=== PATIENT | female | born 1990 | race Two or more races ===

== ENCOUNTER → 2024-09-20 | Outpatient (CLI) | payer MEDICAID, SELFPAY ==
--- NOTE | 2024-09-20 | XR_ITS ---
Examination: Wrist, right 3 views Technique: Wrist AP, oblique, lateral 3 views Date and time of exam: September 20, 2024 1247 hours Comparison August 01, 2024 INDICATIONS: Acute fracture radius August 01, 2024 postop reduction internal fixation fracture FINDINGS: Significant partial healing fractures distal radial metaphysis with stable and satisfactory alignment Orthopedic hardware satisfactory position IMPRESSION: Significant partial healing fractures distal radius with satisfactory and stable alignment
== END | disposition home or self-care (01) ==
PROVIDERS: Referring Provider Orthopaedic Surgery; Visit Provider Orthopaedic Surgery
DX: S52.91XA Unspecified fracture of right forearm, initial encounter for closed fracture (principal); X58.XXXA Exposure to other specified factors, initial encounter
CPT/HCPCS: 73110

== ENCOUNTER 2025-10-08 17:58 | Emergency (ER) | payer MEDICAID, SELFPAY ==
[2025-10-08 18:26] VITALS: BP 106/71; PULSE 76; RESP 18; TEMP 36.9; O2SAT 97; BMI 23.4
--- NOTE | 2025-10-08 18:28 | XR_ITS ---
Examination: Complete OB ultrasound, less than 14 weeks, transabdominal Date and time of exam: October 08, 2025, 1840 hours INDICATIONS: Nausea vomiting beginning 5 days ago Technique: Obstetrical ultrasound images less than 14 weeks performed via transabdominal imaging Findings: Uterus 8.6 cm Intrauterine gestational sac 1.3 cm corresponds to 6 weeks 1 day No pole, no cardiac activity Right ovary 3.6 cm arterial flow Left ovary 2.8 cm arterial flow IMPRESSION: Empty intrauterine gestational sac corresponding to 6 weeks 1 day gestational age Recommend short-term follow-up transvaginal pelvic sonography
[2025-10-08 18:57] LABS: Basophils # (Auto) 0.0 Thou/mm3 (0.0-0.2); Basophils % (Auto) 0 % (0-2.5); Eosinophils # (Auto) 0.1 Thou/mm3 (0.0-0.5); Eosinophils % (Auto) 1 % (0-10); Hematocrit 35.0 % (36.0-46.0); Hemoglobin 11.4 g/dL (12.0-16.0); Immature Granulocytes Auto 0.02 Thou/mm3 (0.00-0.00); Lymphocytes # (Auto) 1.3 Thou/mm3 (1.0-4.8); Lymphocytes % (Auto) 18 % (10-50); Mean Corpuscular HGB Conc 32.6 g/dl (31.0-37.0); Mean Corpuscular Hemoglobin 28.3 pg (25.0-35.0); Mean Corpuscular Volume 87 fL (80-100); Monocytes # (Auto) 0.5 Thou/mm3 (0.0-0.8); Monocytes % (Auto) 7 % (0-12); Neutrophils # (Auto) 5.2 Thou/mm3 (1.8-7.7); Neutrophils % (Auto) 74 % (37-80); Nucleated Red Blood Cell # 0.00 Thou/mm3 (0.00-0.00); Nucleated Red Blood Cell % 0 /100 WBC (0); Platelet Count 234 Thou/mm3 (140-440); RDW Standard Deviation 45.8 fL (36.4-46.3); Red Blood Count 4.03 Miln/mm3 (4.00-5.20); White Blood Count 7.0 Thou/mm3 (3.6-11.0)
[2025-10-08 19:19] LABS: Alanine Aminotransferase 11 U/L (10-49); Albumin, Serum 4.5 gm/dL (3.5-5.0); Albumin/Globulin Ratio 1.3 (1.2-2.2); Alkaline Phosphatase 47 U/L (46-116); Anion Gap 11 (7-16); Aspartate Amino Transferase 29 U/L (0-34); BUN/Creatinine Ratio 9 Ratio (12-20); Bilirubin,Total 0.4 mg/dL (0.3-1.2); Blood Urea Nitrogen 7 mg/dL (9-23); Calcium 9.5 mg/dL (8.3-10.6); Calcium (Corrected) 9.5 mg/dL (8.5-10.1); Carbon Dioxide 24.3 mMol/L (20.0-31.0); Chloride 102 mMol/L (98-107); Creatinine (Component) 0.8 mg/dL (0.6-1.3); Estimated Creatinine Clearance 70.5 mL/min (>60); Globulin 3.4 gm/dL (2.3-3.5); Glucose 110 mg/dL (74-106); Osmolality,Calculated 272 (275-295); Potassium 3.3 mMol/L (3.4-5.1); Sodium 137 mMol/L (136-145); Total Protein 7.9 gm/dL (5.7-8.2); eGFR > 60 See Note
[2025-10-08 19:45] LABS: Beta HCG,Quantitative 38917 mIU/mL (<5.0)
[2025-10-08 19:51] LABS: Collection Type, Urine Voided
[2025-10-08 19:59] LABS: Amorphous Crystals,Urine Present (Absent); Bacteria,Urine Rare; Bilirubin,Urine Negative (Negative); Blood,Urine Negative (Negative); Clarity,Urine Clear (Clear/Hazy); Color,Urine Colorless (Lt Yel-Yel); Glucose, Urine Negative (Negative); Ketones,Urine Negative (Negative); Leukocyte Esterase,Urine Negative (Negative); Nitrite,Urine Negative (Negative); PH,Urine 6.5 (5.0-7.0); Protein,Urine Negative (Neg - Trace); RBC,Urine 14 /hpf (0-3); Specific Gravity,Urine 1.006 (1.001-1.035); Squamous Epithelial Cell,Urine 3 /hpf (0-5); Urobilinogen,Urine Negative mg/dL (0.0-1.0); WBC,Urine 2 /hpf (0-5)
--- NOTE | 2025-10-08 20:15 | EDNOTE_ITS ---
Upper Respiratory Inf. RME/HPI General Chief Complaint: Flu Like Symptoms Stated Complaint: FEVER, VOMITING, H/A Time Seen by Provider: 10/08/25 18:21 Arrival date/time: 10/08/25 17:58 This is a case of 35-year-old female with no medical history came in in the emergency room due to multiple symptoms patient initially have cough for 5 days on and off with nasal congestion with subjective fever and vomiting and frontal headacheheadache patient is 6 weeks 1 para 0 currently due to persistence of the symptoms now with abdominal pain mostly in the pelvic area. Thus decided to sought consult here in the emergency room denies any vaginal bleeding vaginal discharge Limitations: no limitations Related Data Previous Rx's ?Medication ?Instructions ?Recorded cetirizine 10 mg tablet (Zyrtec) 10 mg PO QDAY PRN all ergy symptoms 02/20/19 #30 tabs hydrocodone 5 mg-acetaminophen 325 1 tab PO BID PRN pa in #10 tabs 08/01/ mg tablet albuterol sulfate 90 mcg/actuation 1 puff inhalation Q 4H PRN 10/08/25 aerosol inhaler (Ventolin HFA) shortness of breath or wheezing #8.5 grams ondansetron 4 mg disintegrating 4 mg PO Q8H #20 tabs 1 12/09/24 tablet Allergies Allergy/AdvReac Type Severity Reaction Status Date / Time No Known Allergies Allergy Verified 10/08/25 18:01 Review of Systems Review of Systems Systems Reviewed: All systems reviewed, normal except as documented Past Medical History Past Medical History CARDIAC: Negative Congestive Heart Failure RESPIRATORY: Negative Chronic Obstructive Pulmonary Disease (COPD) GENITOURINARY: Negative Renal Disease ENDOCRINE: Negative Diabetes Mellitus Type 1 or Diabetes Mellitus Type 2 Social History SMOKING STATUS: Former smoker ED Exam General Limitations: Present no limitations General appearance: Present alert, in no apparent distress and other (Patient is awake alert oriented not in distress nontoxic looking well-hydrated well-n ourished) Head Head exam: Present atraumatic, normocephalic and normal inspection Eye Eye exam: Present normal appearance, PERRL and EOMI ENT ENT exam: Present normal exam, normal oropharynx, mucous membranes moist and other (Normal HEENT exam) Neck Neck exam: Present normal inspection, full ROM, trachea midline and other (Negative for meningeal sign); Absent tenderness, meningismus, lymphadenopathy o r thyromegaly Chest Chest inspection: Present normal inspection and symmetric chest wall rise; Absent tenderness Respiratory Respiratory exam: Present normal lung sounds bilaterally and wheezes (mild wheezing both lower lung field no crackles no rales no retraction or no crackles no rhonchi no); Absent respiratory distress, stridor, accessory muscle use or prolonged expiratory phase Cardiovascular Cardiovascular exam: Present regular rate, normal rhythm and normal heart sounds; Absent bradycardia, tachycardia, irregular rhythm, systolic murmur or diastolic murmur Abdominal Exam Abdominal exam: Present soft, normal bowel sounds and other (gravid uterus); Absent distention, tenderness, guarding, rebound, rigidity, diminished bowel sounds, hyperactive bowel sounds, hypoactive bowel sounds or organomegaly Extremities Exam Extremities exam: Present normal inspection and full ROM Back Exam Back exam: Present normal inspection and full ROM Neurological Exam Neurological exam: Present alert, oriented X3, CN II-XII intact, normal gait and reflexes normal; Absent motor sensory deficit Psychiatric Psychiatric exam: Present normal affect, normal mood and other (excellent skin turgor) Skin Skin exam: Present warm, dry, intact and normal color Course Quality Measures none Orders Category Date Time Status Bedside COVID-19 Antigen Test NOW Care 10/08/25 18:28 Active Bedside Influenza A&B Antigen Test NOW Care 10/08/25 18:28 Completed US OB <= 14 weeks fetus Stat Exams 10/08/25 18:28 Completed ABO/RH Type Stat Lab 10/08/25 18:30 Completed Beta HCG,Quantitative Stat Lab 10/08/25 18:30 Completed CBC Stat Lab 10/08/25 18:30 Completed CMP [Comprehensive Metabolic Panel] Stat Lab 10/08/25 18:30 Completed Urinalysis Stat Lab 10/08/25 19:31 Completed Albuterol/Ipratr Rt Santa [Duoneb Rt Santa] Med 10/08/25 18:28 Discontinued 3 ml INH X1 ONE Ondansetron Odt [Zofran Odt] Med 10/08/25 20:16 Discontinued 4 mg PO X1 ONE Potassium Chloride [K-Dur] Med 10/08/25 20:09 Discontinued 20 meq PO X1 ONE Vital Signs Vital signs: Vital Signs Temperature 98.5 F 10/08/25 18:26 Pulse Rate 76 10/08/25 18:26 Respiratory Rate 18 10/08/25 18:26 Blood Pressure 106/71 10/08/25 18:26 Pulse Oximetry (%) 97 10/08/25 18:26 Oxygen Delivery Method Room Air 10/08/25 18:26 Oxygen saturation 97% in room air Upper Respiratory Infection MDM Narrative MDM Narrative:: This is a case of 35-year-old female with no medical history came in in the emergency room due to multiple symptoms patient initially have cough for 5 days on and off with nasal congestion with subjective fever and vomiting and frontal headacheheadache patient is 6 weeks 1 para 0 currently due to persistence of the symptoms now with abdominal pain mostly in the pelvic area. Thus decided to sought consult here in the emergency room denies any vaginal bleeding vaginal discharge physical examination patient is awake alert oriented no apparent distress nontoxic looking well-hydrated well-nourished excellent skin turgor negative for meningeal sign HEENT exam is normal and unremarkable lungs sound is clear no crackles no rales minimal wheezing right lower lung no retraction no stridor noted mild tenderness suprapubic area no guarding no rebound no rigidity negative psoas negative straight or negative Rovsing's negative [place]'s negative + negative CVAT blood test showed no leukocytosis no anemia kidney and liver function is normal no electrolyte imbalance beta hcg noted [id number] pelvic jong Empty intrauterine gestational sac corresponding to 6 weeks 1 day gestational age patient COVID flu is negative patient was given breathing treatment here due to wheezing after breathing treatment wheezing resolved patient will follow-up with PCP in 2 days for reevaluation and to be referred to OB assembly lead person for possible threatened and checkup patient will follow-up in 2 days for reevaluation for repeat beta-hCG and pelvic ultrasound for any worsening symptoms or any emergent concern return precaution in the ER is advsied patient was discharged with comfortable condition walking with stable gait. Patient verbalized no further complains explained diagnosis and answered patient question. Patient is comfortable with the proposed management plan including the need to follow up with his/her primary care physician and any specialist if applicable Discussed patient for any urgent condition or worsening sx, He/She needed to go to emergency room immediately or call 911. Patient acknowledge the responsibility to follow up as instructed and to monitor her/his symptoms. For any persistence of the symptoms for more than 3-5 days return precaution advised. Discussed the result of the test and was given printed discharge instruction Patient data External records reviewed:: [facility] previous records Clinical information provided by:: patient Social determinants that could affect healthcare access:: none Patient has the following chronic illnesses:: none How is presenting disease/condition affected by chronic disease/condition?: no chronic disease Evaluation data The following diagnostics were reviewed and interpreted by me:: lab results and radiology exam(s) Lab and/or radiology exams considered but not ordered:: [email or web address] Interpretation Summary: none Medications / Prescriptions Medications or Prescriptions considered but not ordered:: given Medication administrations:: Medication Administration History Discontinued Medications Albuterol/Ipratropium (Albuterol/Ipratropium (Duoneb) Rt Santa 3 Ml Nebu) 3 ml INH X1 ONE Stop: 10/08/25 18:29 Ondansetron HCl (Ondansetron Odt 4 Mg Tabrap) 4 mg PO X1 ONE; Protocol Stop: 10/08/25 20:17 Potassium Chloride (Potassium Chloride 20 Meq Tabcr) 20 meq PO X1 ONE Stop: 10/08/25 20:10 given Consultations Consultation(s) initiated? (list below): No Diagnosis Upper Respiratory Differential Diagnosis: upper respiratory infection, sinusitis, viral infection, bronchitis, influenza and pharyngitis Most likely diagnosis given after review of the tests above:: cough abdominal pain in Admission Indicated Admission indicated?: not indicated Explain why admission is indicated or not indicated:: not indicated Admission Request Was there a request for admission?: No Disposition Plan Disposition Plan: Discharge Discharge Attestation Discharge Attestation: The patient and all family members were given an opportunity to ask questions and understood the discharge instructions. Discharge instructions specifically effects, indications for sooner follow up or return to the emergency department, and the expected course of current diagnosis. Patient condition: Stable Discharge Plan Plan Patient Disposition: HOME (Self Care) Patient condition on transfer: Stable Prescriptions/Referrals Prescriptions/Med Rec: New albuterol sulfate [Ventolin HFA] 90 mcg/actuation HFA aerosol inhaler 1 puff inhalation Q4H PRN (Reason: shortness of breath or wheezing) Qty: 8.5 0RF Rx Instructions: Please give ondansetron 4 mg tablet,disintegrating 4 mg PO Q8H Qty: 20 0RF No Action cetirizine [Zyrtec] 10 mg tablet 10 mg PO QDAY PRN (Reason: allergy symptoms) Qty: 30 0RF hydrocodone-acetaminophen 5-325 mg tablet 1 tab PO BID MDD 10 PRN (Reason: pain) Qty: 10 0RF Referrals: Jovanni Perdomo MD [Primary Care Provider, Family Practice] - In 1 week Problem List Clinical Impression: Cough, Abdominal pain during , Vomiting during Patient/Caregiver Discharge Instructions Education Materials: ED Cough Chronic Uncertain Cause Adult, ED Abdominal Pain, Early Additional Instructions: Follow-up with your primary care physician in 2 days for reevaluation and to be referred to OB assembly lead person for further evaluation and treatment of your abdominal pain infected recurrence worsening symptoms or any emergent concern call 911 or go to the nearest emergency room take your medication as directed increase water intake keep hydrated continue to take your multivitamins it is important to return in the emergency room in 2 days for reevaluation and to have repeat beta-hCG and pelvic Pedialyte Gatorade for every bouts of vomiting Print Language: Mauritian Stand Alone Forms: Yue Award Info., Work/School Release, Patient Portal Info Letter PA/WELDER GUN Supervising Physician PA/KARY Supervising Physician: dr mejía
== END 2025-10-08 20:46 | disposition home or self-care (01) ==
PROVIDERS: Nurse Practitioner Family; Emergency Provider Emergency Medicine; PCP Family Medicine
DX: O21.9 Vomiting of pregnancy, unspecified (principal); Z3A.01 Less than 8 weeks gestation of pregnancy; O26.891 Other specified pregnancy related conditions, first trimester; R10.20 Pelvic and perineal pain unspecified side; R05.9 Cough, unspecified; R50.9 Fever, unspecified; R51.9 Headache, unspecified; O09.511 Supervision of elderly primigravida, first trimester
CPT/HCPCS: 36415; 76801; 80053; 81001; 84702; 85025; 86900; 86901; 87502; 87635; 99283; A9270